=== PATIENT | male | born 1955 | race Caucasian/White ===

== ENCOUNTER → 2019-02-28 10:54 | Outpatient (CLI) | payer BC, SELFPAY ==
[2019-02-28 12:42] LABS: Absolute Lymphocyte Count 1.34 X10^3/uL (0.83-4.51); Absolute Neutrophil Count 3.9 X10^3/uL (2.0-7.7); Basophil# 0.02 X10^3/uL; Basophil% 0.3 % (0-1); Eosinophil# 0.07 X10^3/uL; Eosinophils% 1.2 % (0-5); Hematocrit 44.3 % (40-54); Hemoglobin 14.2 g/dL (13.0-16.5); Lymphocyte # 1.34 X10^3/ul (4.0); Lymphocyte % 22.3 % (19-41); Mean Corp Hgb Conc 32.1 g/dL (32-36); Mean Corpuscular Hgb 28.8 pg (27.0-32.0); Mean Corpuscular Volume 89.9 fL (80-94); Mean Platelet Vol. 11.5 fl (6.2-12.0); Monocyte# 0.66 X10^3/uL; NRBC Flagged by Analyzer 0 % (0-5); Neutrophil % 64.9 % (47-70); Platelet Count 161 K/mm3 (150-450); RBC Distribution Width CV 13.5 % (11.6-14.6); RBC Distribution Width SD 44.1 fl (35.1-43.9); Red Blood Count 4.93 M/mm3 (4.6-6.2)
[2019-02-28 13:27] LABS: ALB/GLOB Ratio 1.1 RATIO (0.9-2.4); AST(SGOT) 26 U/L (15-37); Alanine Aminotransfer ALT/SGPT 37 U/L (16-61); Albumin, Serum 3.8 g/dL (3.2-5.0); Alkaline Phosphatase 71 U/L (45-117); Anion Gap 6 (5-15); BUN 25 mg/dL (7-18); BUN/Creat Ratio 24.3 RATIO (10-20); Calcium,Total 9.2 mg/dL (8.5-10.1); Chloride 108 mmol/L (98-107); Cholesterol 120 mg/dL (200); Creatinine, Serum 1.03 mg/dL (0.70-1.30); EST Glomerular Filtration Rate 77 mL/min (>60); Est Glom Filt Rate - Afr Amer 93 mL/min (>60); Globulin 3.6 g/dL (2.2-4.2); Glucose 94 mg/dL (74-106); High Density Lipoprotein 34 mg/dL; PSA,Total - Annual Screen 0.54 ng/mL (0.00-4.00); Potassium 4.3 mmol/L (3.5-5.1); Protein, Total 7.4 g/dL (6.4-8.2); Sodium Level 141 mmol/L (136-145); Thyroid Stim Hormone (TSH) 4.98 uIU/mL (0.358-3.74); Triglycerides 190 mg/dL; Very Low Density Lipoprotein 38 mg/dL (5-40)
== END ==
PROVIDERS: Family Provider Family Medicine; PCP Family Medicine; Referring Provider Family Medicine; Visit Provider Family Medicine
DX: Z00.00 Encounter for general adult medical examination without abnormal findings (principal); Z12.5 Encounter for screening for malignant neoplasm of prostate
CPT/HCPCS: 36415; 80053; 80061; 84153; 84443; 85025; G0103

== ENCOUNTER → 2019-12-21 05:58 | Outpatient (CLI) | payer BC, SELFPAY ==
[2019-05-29 14:28] VITALS: BMI 24.9
--- NOTE | 2019-12-21 06:08 | RAD_ITS ---
ACR Level 3 findings have been noted. An addendum which confirms receipt of the report will follow. 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 HX OF HERNIAS. DENIES ANY CHEST SYMPTOMS. ADDITIONAL HISTORY: None provided. COMPARISON: None EXAMINATION/TECHNIQUE: XR Chest 2 Views Number of images including paperwork: 2 FINDINGS: LUNGS AND PLEURA: No dense consolidation. Elevated left hemidiaphragm. Blunting of left costophrenic angle may be related to small pleural effusion or pleural scarring. Approximate 8 mm nodular density projects between the right posterior fifth and sixth ribs overlying the inferior aspect of the second anterior rib. CARDIAC SILHOUETTE: Unremarkable. MEDIASTINUM AND PIPPA: Unremarkable. UPPER ABDOMEN: Unremarkable. SKELETON AND SOFT TISSUES: No acute findings. OTHER DEVICES AND HARDWARE: Humeral hardware partially visible. RAD/Chest PA and Lateral IMPRESSION: No definite acute findings. Elevated left hemidiaphragm with left pleural scarring and/or small effusion. Possible right lung nodule. CT chest recommended for further evaluation. at 0626 Reported and signed by: Selma Gomes MD Electronically Signed: Selma Gomes MD at 6:26 EDT Tel , Service support ,
== END ==
PROVIDERS: PCP Family Medicine; Referring Provider Surgery; Visit Provider Surgery
DX: K44.9 Diaphragmatic hernia without obstruction or gangrene (principal); T14.90XA Injury, unspecified, initial encounter; X58.XXXA Exposure to other specified factors, initial encounter; Y93.9 Activity, unspecified; Y92.9 Unspecified place or not applicable; Y99.9 Unspecified external cause status
CPT/HCPCS: 71046

== ENCOUNTER → 2019-12-31 14:42 | Outpatient (CLI) | payer BC, SELFPAY ==
[2019-05-29 14:28] VITALS: BMI 24.9
[2019-12-28 15:05] VITALS: BMI 24.9
--- NOTE | 2019-12-31 14:48 | CT_ITS ---
STUDY: CT CHEST WITHOUT CONTRAST REASON FOR EXAM: Male, 64 years old. PULMONARY NODULE F/U RADIATION DOSAGE (If Supplied By Facility): CTDIvol = ( 12.39 ) mGy, DLP = ( 495.28 ) mGycm TECHNIQUE: Transaxial imaging was performed without the administration of intravenous contrast material. Individualized dose optimization techniques were used for this CT. COMPARISON: None. FINDINGS: There is compressive atelectasis in the left lung base. There is no demonstrated pleural abnormality. Normal heart and pericardium. Normal mediastinum. Normal hilar regions. Normal unenhanced pulmonary arteries. Normal aorta arch and descending thoracic aorta. Old healed fractures of the left ninth, 10th, 11th ribs. 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 There is compressive atelectasis in the left lung base. Electronically Signed: Elif Mills, at 14:38 EDT Tel , Service support ,
== END ==
PROVIDERS: PCP Family Medicine; Referring Provider Family Medicine; Visit Provider Family Medicine
DX: R91.1 Solitary pulmonary nodule (principal)
CPT/HCPCS: 71250

== ENCOUNTER → 2020-03-12 08:03 | Outpatient (CLI) | payer BC, SELFPAY ==
[2020-01-28 07:29] VITALS: BMI 24.9
[2020-03-12 10:07] LABS: Absolute Lymphocyte Count 1.25 X10^3/uL (0.83-4.51); Absolute Neutrophil Count 2.9 X10^3/uL (2.0-7.7); Basophil# 0.02 X10^3/uL; Basophil% 0.4 % (0-1); Eosinophil# 0.05 X10^3/uL; Hematocrit 44.4 % (40-54); Hemoglobin 14.6 g/dL (13.0-16.5); Lymphocyte # 1.25 X10^3/ul (4.0); Lymphocyte % 26.2 % (19-41); Mean Corp Hgb Conc 32.9 g/dL (32-36); Mean Corpuscular Hgb 29.3 pg (27.0-32.0); Mean Corpuscular Volume 89.2 fL (80-94); Monocyte# 0.51 X10^3/uL; Monocyte% 10.7 % (0-10); NRBC Flagged by Analyzer 0 % (0-5); Neutrophil # 2.93 X10^3/uL (2.7-7.7); Neutrophil % 61.3 % (47-70); Platelet Count 164 K/mm3 (150-450); RBC Distribution Width CV 13.2 % (11.6-14.6); RBC Distribution Width SD 42.7 fl (35.1-43.9); Red Blood Count 4.98 M/mm3 (4.6-6.2); White Blood Count 4.8 K/mm3 (4.4-11.0)
[2020-03-12 10:37] LABS: ALB/GLOB Ratio 0.9 RATIO (0.9-2.4); AST(SGOT) 25 U/L (15-37); Alanine Aminotransfer ALT/SGPT 39 U/L (16-61); Albumin, Serum 3.6 g/dL (3.2-5.0); Alkaline Phosphatase 82 U/L (45-117); Anion Gap 6 (5-15); BUN 19 mg/dL (7-18); BUN/Creat Ratio 19.1 RATIO (10-20); Calcium,Total 8.6 mg/dL (8.5-10.1); Chloride 107 mmol/L (98-107); Cholesterol 123 mg/dL (200); Creatinine, Serum 0.99 mg/dL (0.70-1.30); EST Glomerular Filtration Rate 80 mL/min (>60); Est Glom Filt Rate - Afr Amer 97 mL/min (>60); Globulin 3.8 g/dL (2.2-4.2); Glucose 93 mg/dL (74-106); High Density Lipoprotein 37 mg/dL; PSA,Total - Annual Screen 0.67 ng/mL (0.00-4.00); Potassium 4.3 mmol/L (3.5-5.1); Protein, Total 7.4 g/dL (6.4-8.2); Sodium Level 140 mmol/L (136-145); Triglycerides 75 mg/dL; Very Low Density Lipoprotein 15 mg/dL (5-40)
== END ==
PROVIDERS: PCP Family Medicine; Referring Provider Family Medicine; Visit Provider Family Medicine
DX: Z00.00 Encounter for general adult medical examination without abnormal findings (principal); Z12.5 Encounter for screening for malignant neoplasm of prostate
CPT/HCPCS: 36415; 80053; 80061; 84153; 85025; G0103

== ENCOUNTER → 2021-03-05 10:54 | Outpatient (CLI) | payer BC, SELFPAY ==
[2021-03-05 12:26] LABS: Absolute Lymphocyte Count 1.21 X10^3/uL (0.83-4.51); Absolute Neutrophil Count 3.3 X10^3/uL (2.0-7.7); Basophil# 0.02 X10^3/uL; Basophil% 0.4 % (0-1); Eosinophil# 0.06 X10^3/uL; Eosinophils% 1.1 % (0-5); Hemoglobin 13.8 g/dL (13.0-16.5); Lymphocyte # 1.21 X10^3/ul (0.83-4.51); Lymphocyte % 23.2 % (19-41); Mean Corp Hgb Conc 32.1 g/dL (32-36); Mean Corpuscular Hgb 28.8 pg (27.0-32.0); Mean Corpuscular Volume 89.6 fL (80-94); Monocyte# 0.59 X10^3/uL; Monocyte% 11.3 % (0-10); NRBC Flagged by Analyzer 0 % (0-5); Neutrophil # 3.31 X10^3/uL (2.7-7.7); Neutrophil % 63.4 % (47-70); Platelet Count 179 K/mm3 (150-450); RBC Distribution Width CV 13.3 % (11.6-14.6); RBC Distribution Width SD 43.7 fl (35.1-43.9); White Blood Count 5.2 K/mm3 (4.4-11.0)
[2021-03-05 13:06] LABS: ALB/GLOB Ratio 0.9 RATIO (0.9-2.4); AST(SGOT) 26 U/L (15-37); Alanine Aminotransfer ALT/SGPT 50 U/L (16-61); Albumin, Serum 3.5 g/dL (3.2-5.0); Alkaline Phosphatase 80 U/L (45-117); Anion Gap 5 (5-15); BUN 22 mg/dL (7-18); BUN/Creat Ratio 24.6 RATIO (10-20); Calcium,Total 8.7 mg/dL (8.5-10.1); Chloride 107 mmol/L (98-107); Cholesterol 121 mg/dL (200); Creatinine, Serum 0.89 mg/dL (0.70-1.30); EST Glomerular Filtration Rate 90 mL/min (>60); Est Glom Filt Rate - Afr Amer 109 mL/min (>60); Globulin 3.8 g/dL (2.2-4.2); Glucose 93 mg/dL (74-106); High Density Lipoprotein 33 mg/dL; PSA,Total - Annual Screen 0.74 ng/mL (0.00-4.00); Potassium 4.4 mmol/L (3.5-5.1); Protein, Total 7.3 g/dL (6.4-8.2); Sodium Level 140 mmol/L (136-145); Triglycerides 284 mg/dL; Very Low Density Lipoprotein 57 mg/dL (5-40)
== END ==
PROVIDERS: PCP Family Medicine; Referring Provider Family Medicine; Visit Provider Family Medicine
DX: Z00.00 Encounter for general adult medical examination without abnormal findings (principal)
CPT/HCPCS: 36415; 80053; 80061; 84153; 85025; G0103

== ENCOUNTER 2021-05-26 05:50 | Day surgery (SDC) | payer BC, SELFPAY ==
--- NOTE | 2021-04-29 09:01 | EKG12_ITS ---
Test Reason : PRE OP Blood Pressure : / mmHG Vent. Rate : 063 BPM Atrial Rate : 063 BPM P-R Int : 162 ms QRS Dur : 100 ms QT Int : 404 ms P-R-T Axes : 070 071 062 degrees QTc Int : 413 ms Normal sinus rhythm Normal ECG Confirmed by ABDON MOURA, AMAURY ([id number]), editorial writer JOSÉ ORTIZ ([id number]) on 04/30/2021 7:09:17 AM Referred By: Juancarlos Rivers Confirmed By:AMAURY COPPOLA MD
[2021-04-29 10:00] LABS: Hematocrit 43.1 % (40-54); Hemoglobin 13.8 g/dL (13.0-16.5); Mean Corpuscular Hgb 28.9 pg (27.0-32.0); Mean Corpuscular Volume 90.2 fL (80-94); Mean Platelet Vol. 10.8 fl (6.2-12.0); Platelet Count 166 K/mm3 (150-450); RBC Distribution Width CV 13.6 % (11.6-14.6); RBC Distribution Width SD 45.4 fl (35.1-43.9); Red Blood Count 4.78 M/mm3 (4.6-6.2); White Blood Count 5.6 K/mm3 (4.4-11.0)
[2021-04-29 10:34] LABS: Anion Gap 4 (5-15); BUN 26 mg/dL (7-18); BUN/Creat Ratio 25.5 RATIO (10-20); Calcium,Total 8.6 mg/dL (8.5-10.1); Chloride 107 mmol/L (98-107); Creatinine, Serum 1.02 mg/dL (0.70-1.30); EST Glomerular Filtration Rate 77 mL/min (>60); Est Glom Filt Rate - Afr Amer 94 mL/min (>60); Glucose 94 mg/dL (74-106); Potassium 4.1 mmol/L (3.5-5.1); Sodium Level 142 mmol/L (136-145)
[2021-05-26] VITALS (13 sets, daily range): BP systolic 80–114; BP diastolic 43–70; PULSE 55–70; RESP 16–18; TEMP 36.9–37.2; O2SAT 92–100; BMI 25.9
[2021-05-26] MEDS: Lactated Ringers 1,000 ML 15 ML IV ×2 (06:42→08:46)
--- NOTE | 2021-05-26 06:43 | HP.PCM_ITS ---
History and Physical Date of Admission: 05/26/21 Intake Visit Reasons: UPDATE H& P Chief Complaint: update H&P for hernia repair Medical Associate Required: No Is patient in pain?: No Allergies No Known Allergies Allergy (Verified 04/30/21 09:05) Medications NK 04/24/21 [History Confirmed 04/30/21] tamsulosin 0.4 mg capsule 0.4 mg PO QHS #14 cap 04/30/21 [Rx Confirmed 04/30/21] PFSH Medical History Abdominal pain Bilateral inguinal hernia without obstruction or gangrene Diaphragmatic hernia Gastric reflux History of arm fracture History of edema Hx of fracture of left hip Hx of fracture of leg Hx of pleurisy Loss of consciousness Migraine headache Non-smoker Surgical History Trauma Family History Mother Hypertension CVA (cerebral vascular accident) Social History Smoking Status: Never smoker second hand exposure: No alcohol intake: never substance use type: does not use caffeine: No frequency: 5-6 times per week seatbelt use: always HPI HPI HPI: LATRICE BARBA, is a 65 M who presents to the office today for an update history and physical. Patient denies recent hospitalizations or illnesses within the last 3 months. Patient claims he had COVID over 2020, however he never had an official test. He states his symptoms started on 03/17. He noted his symptoms lasted 2 days. he states he has been vaccinated and additionally had the booster. He denies any residual side effects. Patient does note that he had a traumatic fall years ago off of a ladder where he broke ribs and had to have surgery for fractured pelvis, left hip and left arm. 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 There is compressive atelectasis in the left lung base. Patient notes that when he is anxious or stressed his breathing does become labored secondary to a diaphragmatic hernia and phrenic nerve paralysis. he has never followed up with a deputy chief counsel. He does not have to utilize any inhalers. He denies chest pain currently. He denies pain/discomfort in the groin areas. He denies change in bowel habits. He notes the left inguinal hernia continues to increase in size. He states the hernia will reduce on its own. He notes intermittently he will have to manually reduce it. He notes having to get up at least once at night time in order to urinate. He is not currently on any medications. Patient's previous history per Dr. Rivers: LATRICE BARBA, is a 64 M who presents to the office today for repeat surgical consultation regarding shortness of breath and epigastric pain. I previously saw this patient on May 29, 2019. That point he is referred by Dr Evans Zeng for surgical consultation. The patient claimed that 5 years prior he had fallen from a roof onto his left side causing a fracture injury to the left arm ribs pelvis collarbone. That point it was suggested to him that he might have a congenital diaphragmatic hernia. He claims that when he humberto over he will gag and have discomfort in the epigastrium. He claimed that 3 weeks prior to his May appointment he had a flulike illness and had generalized abdominal discomfort. He claims that he had had a colonoscopy done by Dr. Duane Ying December 14, 2007 without acute findings. It had been recommended to the patient that he pursue a follow-up colonoscopy and the p atient declined. As of February 28, 2019 his CBC liver function tests were normal. He is being referred for possible consideration of an upper and lower endoscopy. The patient also has a known history of a left inguinal hernia which had been progressively enlarging according to the patient. At the completion of my review I felt that he had non-recurrent bilateral inguinal hernias without obstruction or gangrene. I could not tell whether he had a diaphragmatic hernia but he had been instructed that he did and that follow-up was indicated and he did not previously pursue it. Is having ongoing problems with epigastric pain which could be related to a diaphragmatic defect or involvement of the bile. He had a past history of chest trauma and pelvic trauma and rib fractures. On my clinical exam there was dullness to percussion of the left thoracic base and diminished breath sounds. I felt that a chest abdomen pelvic CT to further clarify he has abdominal pain complaints was warranted. Apparently his insurance company initially approved it. Because of Covid-19 the patient did not pursue it. At this time his insurance company is denying the imaging. His insurance company requested a chest x-ray. On December 21, 2019 at the [facility] the insurance company requested chest x-ray was obtained. This demonstrated elevation of left hemidiaphragm with blunting of left costophrenic angle possibly related to a small pleural effusion no pleural scarring. An 8 mm nodular density projecting in the right posterior fifth and sixth ribs overlying the inferior aspect of the second anterior rib. A chest CT was recommended by radiology. The patient has been seen by his primary care physician Dr Evans Zeng and a chest CT by report has been requested. LATRICE BARBA, is a 64 M who presents to the office today for ongoing concerns regarding abdominal pain. He has had a chest x-ray and a chest CT scan as noted below since his previous visit. This demonstrates marked elevation of the left hemidiaphragm consistent with phrenic nerve paralysis. It also demonstrates some atelectasis of the left base. Today's appointment is to be discussed his bilateral inguinal hernias. [facility] Imaging Services [address] [place] [address] Chest without Contrast MR#: [id number] Name: LATRICE BARBARep #:[id number] : 1955M 64 From: Eilf Mills MD PCP:Dr. Evans Zeng MD Status:REG CLI Study:Chest without Contrast Date of Exam:12/31/19 Exam#[id number] Ordering Dr: Evans Zeng MD STUDY: CT CHEST WITHOUT CONTRAST REASON FOR EXAM: Male, 64 years old. PULMONARY NODULE F/U RADIATION DOSAGE (If Supplied By Facility): CTDIvol = ( 12.39 ) mGy, DLP = ( 495.28 ) mGycm TECHNIQUE: Transaxial imaging was performed without the administration of intravenous contrast material. Individualized dose optimization techniques were used for this CT. COMPARISON: None. FINDINGS: There is compressive atelectasis in the left lung base. There is no demonstrated pleural abnormality. Normal heart and pericardium. Normal mediastinum. Normal hilar regions. Normal unenhanced pulmonary arteries. Normal aorta arch and descending thoracic aorta. Old healed fractures of the left ninth, 10th, 11th ribs. 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 There is compressive atelectasis in the left lung base. Electronically Signed: Elif Mills, at 14:38 EDT Tel , Service support , ROS General General: Yes fatigue; No weight change, appetite, colon cancer, breast cancer or weakness HEENT HEENT: No difficulty swallowing, eye injury, eye surgery, swollen glands or hoarseness Endo Endocrine: No thyroid disease, diabetes mellitus, thyroid cancer, Hair loss, heat intolerance or cold intolerance Musc Musculoskeletal: No back problems, arthritis, rheumatoid arthritis, gout or joint pain Cardio Cardiovascular: No murmur, pacemaker, heart disease, atrial fibrillation, high blood pressure, heart attack, heart stent, palpitations, shortness of breat with exertion or chest pain Psych Psychiatric: No depression, anxiety or hearing voices Resp Respiratory: No shortness of breath, No sleep apnea, No cough, No COPD, No asthma, No emphysema and No wheezing Gastro Gastrointestinal: Yes abdominal pain, No nausea or vomiting, No diarrhea, No constipation, No blood in stool, No acid reflux, No hemorrhoids, No ulcers, No gallbladder problem and No black,tarry stools Terence Hematologic: No blood thinners, No blood disorders, No bleeding, No anemia and No blood clots Neuro Neurologic: No weakness Exam Const General: cooperative, healthy appearing, comfortable and no acute distress [facility] Head: normal to inspection Eyes General: appearance normal, both eyes and all related structures Neck Neck: normal visual inspection Neck mass: No Resp Effort & Inspection: normal respiratory effort Auscultation: clear to auscultation bilaterally and diminished lung sounds on the left in the lower lung ambriz Cardio Rate: regular rate Rhythm: regular rhythm GI Inspection: normal to inspection Palpation: soft Auscultation: normal bowel sounds Other: Left groin- large non-reducible left inguinal hernia involving bowel Right groin- palpable right inguinal hernia; easily reducible Nicely healed incision of the left lower abdomen extending laterally from previous traumatic hip repair Skin General: no rashes or lesions noted Neuro General: no focal motor deficits and CN's II-XI intact bilaterally Extrem General: normal to inspection Psych Appearance: grossly normal Affect: normal affect COVID (Procedure Consent) Procedure Criteria Procedure Criteria: Yes Elective The surgeon/proceduralist and patient have discussed in detail the risk of exposure to and/or potential harm posed by the COVID-19 virus with having a surgery/procedure at this time versus the risk of delaying the surgery/procedure. It is not possible to know either the risk of delaying the surgery or procedure or chance of getting an infection with perfect accuracy, but a joint decision was made between the patient and the surgeon/proceduralist to proceed at this time with the scheduled surgery/procedure as indicated on the consent form. Assessment and Plan Assessment and Plan (1) Bilateral inguinal hernia without obstruction or gangrene: Status: Acute Qualifiers: Recurrence: non-recurrent Qualified Code(s): K40.20 - Bilateral inguinal hernia, without obstruction or gangrene, not specified as recurrent Plan - Corinna GUNDERSON PAYeseniaC: Dr. Rivers will plan to perform laparoscopic bilateral inguinal hernia repair with mesh. Procedure details, risks and benefits have been reviewed with the patient. Patient is aware that this will be an extensive repair secondary to the amount of bowel that is involved. Patient has requested Dr. Tipton for anesthesia. It has been discussed with the patient that we are recommending 2 weeks off of work. Post-operative instructions have been reviewed and provided as well. Patient has had the opportunity to ask and have questions answered. Flomax will be sent to the patient's pharmacy. He is asked to start this medication right away tonight. Patient verbally understands and agrees with the plan. Plan Details Other Medications: New: tamsulosin (Flomax) 0.4 mg PO QHS 14 caps 0RF I have re-examined the patient. There are no clinical changes since date of exam.
--- NOTE | 2021-05-26 06:45 | EX.PCM.DISCH ---
Discharge Instructions Procedure General Surgery Diet Discharge Diet: Light diet - advance as tolerated (if you have questions about your diet instructions, please talk to you doctor.) Activity Discharge Activity: May Not Drive (for 3-5 days or while taking narcotic pain medicine.) May shower in (days): 1 Lifting Restrictions: 10 pounds Dressing / Incision Call your doctor if your incision/area has: Continuous Slow Oozing, Sudden Increased Bleeding, Increased Pain/ Swelling, Increased Redness and Foul Smelling Discharge Call your doctor if you observe: Fever of 101 or Higher Suture Line Care: Avoid Pulling/Pushing and Avoid Pinching/Bending Additional Dressing/Incision Instructions:: Change or remove dressing in 4 days. Leave steri-strips in place for 1 week. Follow Up Care Please Follow Up With: Juancarlos Rivers MD When: Call [phone] to make an appointment to be seen in about 10 days. Test Results: Test results from this visit will be discussed in further detail at your follow-up appointment, if applicable. Discharge Plan Admission Attending Provider: Juancarlos Rivers Primary Care Provider: Evans Zeng Discharge Orders/Prescriptions Prescriptions: No Action tamsulosin [Flomax] 0.4 mg capsule 0.4 mg PO QHS Qty: 14 RF: 0 NK RF: 0
[2021-05-26] MEDS: Cefazolin 2 GM in 0.9% Normal Saline 100 ML IV (07:45)
[2021-05-26] MEDS: Bupivacaine Mpf 0.5% 30 ML VIAL (08:15)
[2021-05-26] MEDS: Lidocaine 1% (20 ml mdv) 20 ML Vial (08:15)
--- NOTE | 2021-05-26 09:22 | PCM.OPRPT ---
Problems Associated Problem List Diagnoses (1) Bilateral inguinal hernia without obstruction or gangrene: Report of Operation Date of Procedure: 05/26/21 Pre-Operative Diagnosis: Bilateral inguinal hernias Post-Operative Diagnosis: Large indirect left inguinal hernia, direct and indirect right inguinal hernias Surgery/Procedure Performed:: Laparoscopic bilateral inguinal herniorrhaphy with bilateral extra-large Bard 3D max mesh Extra-large right lot number [id number], reference [id number], expiry date 11/22/2025 Extra-large left lot number [id number], reference [id number], expiry date 10/22/2025 Secure strap Lot number [id number], expiry date July 2022 Description of Surgical Findings:: Timeout informed consent was obtained. 65-year-old gentleman was taken to the operating placed supine on the table underwent general endotracheal intubation anesthesia. Ancef 2 g were given intravenously. The abdomen was sterilely prepped and draped. 20 cc of 1% lidocaine mixed with 30 cc of 0.5% Marcaine was used as a local anesthetic. Skin sites were preanesthetized. A vertical infraumbilical incision was created sharp dissection carried down through the subtenons tissue holding sutures of 0 Vicryl placed the fascia was incised and direct access was gained to the peritoneum Asencio catheter was inserted. The abdomen was insufflated with CO2 to a pressure of 10 mmHg pressure. 10 mm laparoscope inserted. Under direct visualization 5 mm ports were placed in the right and left lower quadrant. Ilioinguinal nerve blocks were performed bilaterally under laparoscopic control. There was some adhesions of the pericolonic tissue in the left lower quadrant to the anterior abdominal wall and these were sharply transected to allow access to the peritoneum which was then inside. This was reflected. Using external pressure portion of the sigmoid colon was reduced. The sac was then further reduced with both sharp and blunt dissection as a very large left inguinal hernia sac and contents completely reduced. Dissection was formed medially and the retropubic pubic area. Adhesions were encountered in this location and Hem-o-nick clips were used for hemostasis as the dissection was slow and tedious. I then krystian attention to the right groin incised the peritoneum superior lateral to the internal ring reflected the peritoneum on the right and detected both a indirect and direct inguinal hernia on the right. Upon dissecting the space was able to communicate with the dissection from the left. The urinary bladder was carefully protected as it was dissected free. The retropubic area nicely exposed. An extra-large Bard 3D max mesh was placed on the left first it was secured in place superior and laterally and medially with secure strap. I then placed an extra-large mesh on the right it overlapped the left at the midline. It nicely covered all defects and it also was secured superiorly medially and laterally with secure strap. Excellent positioning of both pieces of mesh was achieved with excellent coverage of all hernial defects. The peritoneum was then reapproximated to itself using secure strap and hemolock clips. Complete obliteration to the mesh was achieved. The abdomen was now deflated of the CO2. The fascia at the infraumbilical area was closed with a running 0 Vicryl. Skin edges approximated opted for Monocryl subdermal stitches. Steri-Strips Telfa OpSite dressings applied. Sponge and instrument and needle counts were reported to the surgeon to be correct. Specimens none. Drains none. Blood loss minimal. Juancarlos Rivers M.D., F.A.C.S. Surgeon: Juancarlos Rivers Type of Anesthesia: General and Local Anesthesiologist: Earl Escobar
[2021-05-26] MEDS: Ibuprofen 600 MG Tablet PO (12:02)
== END 2021-05-26 23:59 | disposition home or self-care (01) ==
LOC: SDC 05:50 → AC 05:51
PROVIDERS: PCP Family Medicine; Referring Provider Surgery; Visit Provider Surgery
PROC: (CPT 49650; principal; 2021-05-26 07:10)
DX: K40.20 Bilateral inguinal hernia, without obstruction or gangrene, not specified as recurrent (principal); K21.9 Gastro-esophageal reflux disease without esophagitis; K44.9 Diaphragmatic hernia without obstruction or gangrene; Z86.16 Personal history of COVID-19
CPT/HCPCS: 49650; 36415; 80048; 85027; 93005; J7120; C1781; J2405

== ENCOUNTER → 2022-03-10 | Outpatient (CLI) | payer BC, SELFPAY ==
[2022-03-10 09:54] LABS: Absolute Lymphocyte Count 1.18 X10^3/uL (0.83-4.51); Basophil# 0.02 X10^3/uL; Basophil% 0.4 % (0-1); Eosinophil# 0.12 X10^3/uL; Eosinophils% 2.4 % (0-5); Hematocrit 45.1 % (40-54); Hemoglobin 14.3 g/dL (13.0-16.5); Lymphocyte # 1.18 X10^3/ul (0.83-4.51); Lymphocyte % 23.9 % (19-41); Mean Corp Hgb Conc 31.7 g/dL (32-36); Mean Corpuscular Hgb 28.7 pg (27.0-32.0); Mean Corpuscular Volume 90.6 fL (80-94); Mean Platelet Vol. 11.1 fl (6.2-12.0); Monocyte# 0.56 X10^3/uL; Monocyte% 11.3 % (0-10); NRBC Flagged by Analyzer 0 % (0-5); Neutrophil # 3.04 X10^3/uL (2.7-7.7); Neutrophil % 61.6 % (47-70); Platelet Count 163 K/mm3 (150-450); RBC Distribution Width CV 13.4 % (11.6-14.6); RBC Distribution Width SD 44.6 fl (35.1-43.9); Red Blood Count 4.98 M/mm3 (4.6-6.2); White Blood Count 4.9 K/mm3 (4.4-11.0)
[2022-03-10 10:18] LABS: ALB/GLOB Ratio 1.2 RATIO (0.9-2.4); AST(SGOT) 27 U/L (15-37); Alanine Aminotransfer ALT/SGPT 47 U/L (16-61); Albumin, Serum 3.8 g/dL (3.2-5.0); Alkaline Phosphatase 75 U/L (45-117); Anion Gap 5 (5-15); BUN 20 mg/dL (7-18); BUN/Creat Ratio 20.1 RATIO (10-20); Calcium,Total 8.9 mg/dL (8.5-10.1); Chloride 107 mmol/L (98-107); Cholesterol 139 mg/dL (200); Creatinine, Serum 0.99 mg/dL (0.70-1.30); EST Glomerular Filtration Rate 79 mL/min (>60); Est Glom Filt Rate - Afr Amer 96 mL/min (>60); Globulin 3.2 g/dL (2.2-4.2); Glucose 93 mg/dL (74-106); High Density Lipoprotein 45 mg/dL; PSA,Total - Annual Screen 0.77 ng/mL (0.00-4.00); Potassium 4.4 mmol/L (3.5-5.1); Sodium Level 141 mmol/L (136-145); Triglycerides 50 mg/dL; Very Low Density Lipoprotein 10 mg/dL (5-40)
== END | disposition home or self-care (01) ==
LOC: MFPLAB 08:09
PROVIDERS: PCP Family Medicine; Referring Provider Family Medicine; Visit Provider Family Medicine
DX: E78.5 Hyperlipidemia, unspecified (principal); Z12.5 Encounter for screening for malignant neoplasm of prostate
CPT/HCPCS: 36415; 80053; 80061; 84153; 84432; 84439; 84443; 85025; 86376; 86800; G0103

== ENCOUNTER → 2023-04-14 | Outpatient (CLI) | payer BC, SELFPAY ==
[2023-04-14 10:31] LABS: Absolute Lymphocyte Count 1.13 X10^3/uL (0.83-4.51); Absolute Neutrophil Count 3.2 X10^3/uL (2.0-7.7); Basophil# 0.01 X10^3/uL; Basophil% 0.2 % (0-1); Eosinophil# 0.08 X10^3/uL; Eosinophils% 1.6 % (0-5); Hematocrit 44.8 % (40-54); Hemoglobin 14.8 g/dL (13.0-16.5); Lymphocyte # 1.13 X10^3/ul (0.83-4.51); Lymphocyte % 22.9 % (19-41); Mean Corpuscular Hgb 29.8 pg (27.0-32.0); Mean Corpuscular Volume 90.1 fL (80-94); Mean Platelet Vol. 11.6 fl (6.2-12.0); Monocyte# 0.52 X10^3/uL; Monocyte% 10.5 % (0-10); NRBC Flagged by Analyzer 0 % (0-5); Neutrophil # 3.18 X10^3/uL (2.7-7.7); Neutrophil % 64.6 % (47-70); Platelet Count 165 K/mm3 (150-450); RBC Distribution Width CV 13.2 % (11.6-14.6); RBC Distribution Width SD 43.7 fl (35.1-43.9); Red Blood Count 4.97 M/mm3 (4.6-6.2); White Blood Count 4.9 K/mm3 (4.4-11.0)
[2023-04-14 10:51] LABS: AST(SGOT) 24 U/L (15-37); Alanine Aminotransfer ALT/SGPT 39 U/L (16-61); Albumin, Serum 3.7 g/dL (3.2-5.0); Alkaline Phosphatase 75 U/L (45-117); Anion Gap 3 (5-15); BUN 16 mg/dL (7-18); BUN/Creat Ratio 15.7 RATIO (10-20); Calcium,Total 9.2 mg/dL (8.5-10.1); Chloride 107 mmol/L (98-107); Cholesterol 136 mg/dL (200); Creatinine, Serum 1.02 mg/dL (0.70-1.30); EST Glomerular Filtration Rate 77 mL/min (>60); Est Glom Filt Rate - Afr Amer 93 mL/min (>60); Globulin 3.7 g/dL (2.2-4.2); Glucose 100 mg/dL (74-106); High Density Lipoprotein 41 mg/dL; PSA,Total - Annual Screen 0.87 ng/mL (0.00-4.00); Potassium 4.3 mmol/L (3.5-5.1); Protein, Total 7.4 g/dL (6.4-8.2); Sodium Level 138 mmol/L (136-145); T4 Free Direct 1.02 ng/dL (0.76-1.46); Thyroid Stim Hormone (TSH) 5.95 uIU/mL (0.358-3.74); Triglycerides 78 mg/dL; Very Low Density Lipoprotein 16 mg/dL (5-40)
== END | disposition home or self-care (01) ==
LOC: MTLAB 07:06
PROVIDERS: PCP Family Medicine; Referring Provider Family Medicine; Visit Provider Family Medicine
DX: Z12.5 Encounter for screening for malignant neoplasm of prostate (principal); E06.3 Autoimmune thyroiditis; E78.5 Hyperlipidemia, unspecified
CPT/HCPCS: 36415; 80053; 80061; 84153; 84439; 84443; 85025; G0103

== ENCOUNTER → 2024-05-17 | Outpatient (CLI) | payer BC, SELFPAY ==
[2024-05-17 10:20] LABS: Absolute Lymphocyte Count 1.04 X10^3/uL (0.83-4.51); Absolute Neutrophil Count 2.9 X10^3/uL (2.0-7.7); Basophil# 0.02 X10^3/uL; Basophil% 0.4 % (0-1); Eosinophil# 0.07 X10^3/uL; Eosinophils% 1.5 % (0-5); Hematocrit 45.8 % (40-54); Hemoglobin 14.4 g/dL (13.0-16.5); Lymphocyte # 1.04 X10^3/ul (0.83-4.51); Mean Corp Hgb Conc 31.4 g/dL (32-36); Mean Corpuscular Hgb 28.2 pg (27.0-32.0); Mean Corpuscular Volume 89.6 fL (80-94); Mean Platelet Vol. 11.1 fl (6.2-12.0); Monocyte# 0.47 X10^3/uL; Monocyte% 10.4 % (0-10); NRBC Flagged by Analyzer 0 % (0-5); Neutrophil # 2.91 X10^3/uL (2.7-7.7); Neutrophil % 64.5 % (47-70); Platelet Count 170 K/mm3 (150-450); RBC Distribution Width CV 13.2 % (11.6-14.6); RBC Distribution Width SD 43.2 fl (35.1-43.9); Red Blood Count 5.11 M/mm3 (4.6-6.2); White Blood Count 4.5 K/mm3 (4.4-11.0)
[2024-05-17 10:47] LABS: AST(SGOT) 28 U/L (15-37); Alanine Aminotransfer ALT/SGPT 37 U/L (16-61); Albumin, Serum 3.8 g/dL (3.2-5.0); Alkaline Phosphatase 80 U/L (45-117); Anion Gap 3 (5-15); BUN 21 mg/dL (7-18); BUN/Creat Ratio 20.8 RATIO (10-20); Calcium,Total 8.7 mg/dL (8.5-10.1); Chloride 108 mmol/L (98-107); Cholesterol 132 mg/dL (200); Creatinine, Serum 1.01 mg/dL (0.70-1.30); EST Glomerular Filtration Rate 78 mL/min (>60); Est Glom Filt Rate - Afr Amer 94 mL/min (>60); Globulin 3.8 g/dL (2.2-4.2); Glucose 105 mg/dL (74-106); High Density Lipoprotein 45 mg/dL; PSA,Total - Annual Screen 1.16 ng/mL (0.00-4.00); Potassium 4.3 mmol/L (3.5-5.1); Protein, Total 7.6 g/dL (6.4-8.2); Sodium Level 141 mmol/L (136-145); T4 Free Direct 1.05 ng/dL (0.76-1.46); Triglycerides 46 mg/dL; Very Low Density Lipoprotein 9 mg/dL (5-40)
== END | disposition home or self-care (01) ==
LOC: MTLAB 07:04
PROVIDERS: PCP Family Medicine; Referring Provider Family Medicine; Visit Provider Family Medicine
DX: E78.5 Hyperlipidemia, unspecified (principal); E06.3 Autoimmune thyroiditis; Z12.5 Encounter for screening for malignant neoplasm of prostate
CPT/HCPCS: 36415; 80053; 80061; 84153; 84439; 84443; 85025; G0103

== ENCOUNTER → 2024-06-05 | Outpatient (CLI) | payer BC, SELFPAY | END | disposition home or self-care (01) | LOC: MFPLAB 16:15 | PROVIDERS: PCP Family Medicine; Referring Provider Family Medicine; Visit Provider Family Medicine | DX: R73.09 Other abnormal glucose (principal) | CPT/HCPCS: 36415; 83036 ==

== ENCOUNTER → 2024-12-04 | Outpatient (CLI) | payer BC, SELFPAY ==
--- OUTSIDE RECORDS SUMMARY | 2024-12-04 07:20 | XMS RPT_ITS | CCD ---
Author Organization [facility] Care Team Providers Care Clinical Education Specialist Name Role Phone Evans Zeng Primary Care Unavailable Evans Zeng Referring Unavailable Evans Zeng Attending Unavailable Evans Zeng Referring Unavailable Evans Zeng Attending Unavailable Evans Zeng Primary Care Unavailable Azucena MOURA, Dr. Evans Poole Primary Care Provider Dr. Evans Zeng MD Attending Provider Dr. Evans Zeng MD Referring Provider [phone] Medications Current Medications Medication Drug Class(es) Dates Sig (Normalized) Sig (Original) tamsulosin hydrochloride 0.4 mg oral capsule (6 sources) alpha-Adrenergic Venkat Start: 04-30-2021 End: 05-04-2021 take 1 capsule by mouth at bedtime Tamsulosin (Flomax) 0.4 mg capsule Active 0.4 mg PO AT BEDTIME May 04, 2021 4:45pm Problems Problem Classification Problem Date Documented Da te Episodic/Chronic Abdominal hernia (6 sources) Bilateral inguinal hernia; Translations: [Bilateral inguinal hernia, without obstruction or gangrene, not specified as recurrent] 06-04-2021 Episodic Comment on above: PARALYZED Abdominal pain (3 sources) Abdominal pain; Translations: [Unspecified abdominal pain] 05-29-2019 Episodic Diabetes mellitus without complication (1 source) Other abnormal glucose; Translations: [Other abnormal glucose] Onset: 06-15-2024 Episodic Disorders of lipid metabolism (1 source) Hyperlipidemia, unspecified; Translations: [Hyperlipidemia, unspecified] Onset: 05-29-2024 Chronic Other injuries and conditions due to external causes (3 sources) Traumatic injury; Translations: [Injury, unspecified, initial encounter] 04-24-2021 Episodic Comment on above: 2013 FELL 30 FT AND CRUSHED PELVIS,RIBS,LEFT ARM,LEFT HIP Results Test Name Value Interpretation Reference Range Facility Hemoglobin A1con 06-05-2024 HbA1c (Bld) [Mass fraction] 6.0 % Normal <=5.6 [facility] Comment on above: Order Comment: Order Date: 05/18/24 Order Info: 4548-4 - A1C Performed By: #### L 501.9985 #### [facility] [address] [place], [place], [id number] Hemoglobin A1c percentageOrd ered By: Evans Zeng on 06-05-2024 HbA1c (Bld) [Mass fraction] 6.0 % >5.7 [facility] Absolute neutrophil countOrd ered By: Evans Zeng on 05-17-2024 Neutrophils (Bld) [#/Vol] 2.9 10*3/uL 2.0-7.7 [facility] Albumin to globulin ratioOrd ered By: Evans Zeng on 05-17-2024 Albumin/Globulin [Mass ratio] 1.0 {ratio} 0.9-2.4 [facility] Basophil percentageOrdered B y: Evans Zeng on 05-17-2024 Basophils/100 WBC (Bld) 0.4 % 0-1 [facility] Bilirubin, totalOrdered By: Evans Zeng on 05-17-2024 Bilirubin [Mass/Vol] 0.50 mg/dL 0.20-1.00 [facility] Comment on above: For patients on eltr ombopag therapy, use of Dimension [place] TBIL is not recommended. Blood urea nitrogen (BUN)/cr eatinine ratioOrdered By: Evans Zneg on 05-17-2024 Urea nitrogen/Creatinine [Mass ratio] 20.8 mg/mg High 10-20 [facility] CBC W/Diff, Automatedon 04-29 Absolute Lymph 1.04 X10 3/uL Normal 0.83-4.51 [facility] Comment on above: Order Comment: Order Date: 05/16/24 Order Info: 0184-1 - CBCD Performed By: #### L 506.0400, L501.9910, L500.4100, L100.0100, L500.4050, L501.9520 #### [facility] [address] [place], [address] Absolute Neut 2.9 X10 3/uL Normal 2.0-7.7 [facility] Comment on above: Order Comment: Order Date: 05/16/24 Order Info: 0184-1 - CBCD Performed By: #### L 506.0400, L501.9910, L500.4100, L100.0100, L500.4050, L501.9520 #### [facility] [address] [place], [address] Basophils/100 WBC (Bld) 0.4 % Normal 0-1 [facility] Comment on above: Order Comment: Order Date: 05/16/24 Order Info: 0184-1 - CBCD Performed By: #### L 506.0400, L501.9910, L500.4100, L100.0100, L500.4050, L501.9520 #### [facility] [address] [place], [address] Eosinophils/100 WBC (Bld) 1.5 % Normal 0-5 [facility] Comment on above: Order Comment: Order Date: 05/16/24 Order Info: 0184-1 - CBCD Performed By: #### L 506.0400, L501.9910, L500.4100, L100.0100, L500.4050, L501.9520 #### [facility] [address] [place], [address] Erythrocyte distribution width (RBC) [Ratio] 13.2 % Normal 11.6-14.6 [facility] Comment on above: Order Comment: Order Date: 05/16/24 Order Info: 0184-1 - CBCD Performed By: #### L 506.0400, L501.9910, L500.4100, L100.0100, L500.4050, L501.9520 #### [facility] [address] [place], [address] Hematocrit (Bld) [Volume fraction] 45.8 % Normal 40-54 [facility] Comment on above: Order Comment: Order Date: 05/16/24 Order Info: 0184-1 - CBCD Performed By: #### L 506.0400, L501.9910, L500.4100, L100.0100, L500.4050, L501.9520 #### [facility] [address] [place], [address] Hemoglobin (Bld) [Mass/Vol] 14.4 g/dL Normal 13.0-16.5 [facility] Comment on above: Order Comment: Order Date: 05/16/24 Order Info: 0184-1 - CBCD Performed By: #### L 506.0400, L501.9910, L500.4100, L100.0100, L500.4050, L501.9520 #### [facility] [address] [place], [address] IG% 0.200 Normal 0.0-0.9 [facility] Comment on above: Order Comment: Order Date: 05/16/24 Order Info: 0184-1 - CBCD Result Comment: IG% - Immature Granulocytes (promyelocytes, myelocytes and metamyelocytes) > 1% indicates that a LEFT SHIFT is Present. Performed By: #### L 506.0400, L501.9910, L500.4100, L100.0100, L500.4050, L501.9520 #### [facility] [address] [place], [address] Lymphocytes/100 WBC (Bld) 23.0 % Normal 19-41 [facility] Comment on above: Order Comment: Order Date: 05/16/24 Order Info: 0184-1 - CBCD Performed By: #### L 506.0400, L501.9910, L500.4100, L100.0100, L500.4050, L501.9520 #### [facility] [address] [place], [address] MCH (RBC) [Entitic mass] 28.2 pg Normal 27.0-32.0 [facility] Comment on above: Order Comment: Order Date: 05/16/24 Order Info: 0184-1 - CBCD Performed By: #### L 506.0400, L501.9910, L500.4100, L100.0100, L500.4050, L501.9520 #### [facility] [address] [place], [address] MCHC (RBC) [Mass/Vol] 31.4 g/dL Low 32-36 [facility] Comment on above: Order Comment: Order Date: 05/16/24 Order Info: 0184-1 - CBCD Performed By: #### L 506.0400, L501.9910, L500.4100, L100.0100, L500.4050, L501.9520 #### [facility] [address] [place], [address] MCV (RBC) [Entitic vol] 89.6 fL Normal 80-94 [facility] Comment on above: Order Comment: Order Date: 05/16/24 Order Info: 0184-1 - CBCD Performed By: #### L 506.0400, L501.9910, L500.4100, L100.0100, L500.4050, L501.9520 #### [facility] [address] [place], [address] Monocytes/100 WBC (Bld) 10.4 % High 0-10 [facility] Comment on above: Order Comment: Order Date: 05/16/24 Order Info: 0184-1 - CBCD Performed By: #### L 506.0400, L501.9910, L500.4100, L100.0100, L500.4050, L501.9520 #### [facility] [address] [place], [address] Neutrophils/100 WBC (Bld) 64.5 % Normal 47-70 [facility] Comment on above: Order Comment: Order Date: 05/16/24 Order Info: 0184-1 - CBCD Performed By: #### L 506.0400, L501.9910, L500.4100, L100.0100, L500.4050, L501.9520 #### [facility] [address] [place], [address] Nucleated RBC (Bld) [#/Vol] 0 10*3/uL Normal 0-5 [facility] Comment on above: Order Comment: Order Date: 05/16/24 Order Info: 0184-1 - CBCD Performed By: #### L 506.0400, L501.9910, L500.4100, L100.0100, L500.4050, L501.9520 #### [facility] [address] [place], [address] Platelet mean volume (Bld) [Entitic vol] 11.1 fL Normal 6.2-12.0 [facility] Comment on above: Order Comment: Order Date: 05/16/24 Order Info: 0184-1 - CBCD Performed By: #### L 506.0400, L501.9910, L500.4100, L100.0100, L500.4050, L501.9520 #### [facility] [address] [place], [address] Platelets (Bld) [#/Vol] 170 10*3/uL Normal 150-450 [facility] Comment on above: Order Comment: Order Date: 05/16/24 Order Info: 0184-1 - CBCD Performed By: #### L 506.0400, L501.9910, L500.4100, L100.0100, L500.4050, L501.9520 #### [facility] [address] [place], [address] RBC (Bld) [#/Vol] 5.11 10*6/uL Normal 4.6-6.2 [facility] Comment on above: Order Comment: Order Date: 05/16/24 Order Info: 0184-1 - CBCD Performed By: #### L 506.0400, L501.9910, L500.4100, L100.0100, L500.4050, L501.9520 #### [facility] [address] [place], [address] RDW SD 43.2 fl Normal 35.1-43.9 [facility] Comment on above: Order Comment: Order Date: 05/16/24 Order Info: 0184-1 - CBCD Performed By: #### L 506.0400, L501.9910, L500.4100, L100.0100, L500.4050, L501.9520 #### [facility] [address] [place], [address] WBC (Bld) [#/Vol] 4.5 10*3/uL Normal 4.4-11.0 [facility] Comment on above: Order Comment: Order Date: 05/16/24 Order Info: 0184-1 - CBCD Performed By: #### L 506.0400, L501.9910, L500.4100, L100.0100, L500.4050, L501.9520 #### [facility] [address] [facility] [place], [address] Carbon dioxide measurementOr dered By: Evans Zeng on 05-17-2024 CO2 [Moles/Vol] 30.0 mmol/L 21.0-32.0 [facility] Chloride measurementOrdered By: Evans Zeng on 05-17-2024 Chloride [Moles/Vol] 108 mmol/L High 98-107 [facility] Comprehensive Metabolic Prof ilon 05-17-2024 Albumin [Mass/Vol] 3.8 g/dL Normal 3.2-5.0 [facility] Comment on above: Order Comment: Order Date: 05/16/24 Order Info: 785- - CMP Order Info: - LIPID Order Info: 3015-05 - TSH Order Info: 2856-03 - PSA Order Info: 7 - T4F Performed By: #### L 506.0400, L501.9910, L500.4100, L100.0100, L500.4050, L501.9520 #### [facility] [address] [place], [address] Albumin/Globulin [Mass ratio] 1.0 {ratio} Normal 0.9-2.4 [facility] Comment on above: Order Comment: Order Date: 05/16/24 Order Info: 785- - CMP Order Info: - LIPID Order Info: 3015-05 - TSH Order Info: 2856-03 - PSA Order Info: 7 - T4F Performed By: #### L 506.0400, L501.9910, L500.4100, L100.0100, L500.4050, L501.9520 #### [facility] [address] [place], [address] ALK P 80 U/L Normal 45-117 [facility] Comment on above: Order Comment: Order Date: 05/16/24 Order Info: 785-03 - CMP Order Info: - LIPID Order Info: 3015-05 - TSH Order Info: 2856-03 - PSA Order Info: 7 - T4F Performed By: #### L 506.0400, L501.9910, L500.4100, L100.0100, L500.4050, L501.9520 #### [facility] [address] [place], [address] ALT [Catalytic activity/Vol] 37 U/L Normal 16-61 [facility] Comment on above: Order Comment: Order Date: 05/16/24 Order Info: 785-03 - CMP Order Info: - LIPID Order Info: 3015-05 - TSH Order Info: 2856-03 - PSA Order Info: 3024-7 - T4F Performed By: #### L 506.0400, L501.9910, L500.4100, L100.0100, L500.4050, L501.9520 #### [facility] [address] [place], [address] AST [Catalytic activity/Vol] 28 U/L Normal 15-37 [facility] Comment on above: Order Comment: Order Date: 05/16/24 Order Info: 86-1 - CMP Order Info: 82961-0 - LIPID Order Info: 3 - TSH Order Info: 2856-03 - PSA Order Info: 7 - T4F Performed By: #### L 506.0400, L501.9910, L500.4100, L100.0100, L500.4050, L501.9520 #### [facility] [address] [place], [address] Bilirubin [Mass/Vol] 0.50 mg/dL Normal 0.20-1.00 [facility] Comment on above: Order Comment: Order Date: 05/16/24 Order Info: 785- - CMP Order Info: - LIPID Order Info: 3 - TSH Order Info: 2856-03 - PSA Order Info: 3023-7 - T4F Result Comment: For patients on eltrombopag therapy, use of Dimension [place] TBIL is not recommended. Performed By: #### L 506.0400, L501.9910, L500.4100, L100.0100, L500.4050, L501.9520 #### [facility] [address] [place], [address] BUN/CRE 20.8 RATIO High 10-20 [facility] Comment on above: Order Comment: Order Date: 05/16/24 Order Info: 785-1 - CMP Order Info: [id number] - LIPID Order Info: 3016-3 - TSH Order Info: 2856-03 - PSA Order Info: 3024-7 - T4F Performed By: #### L 506.0400, L501.9910, L500.4100, L100.0100, L500.4050, L501.9520 #### [facility] [address] [place], [address] CA,Total 8.7 mg/dL Normal 8.5-10.1 [facility] Comment on above: Order Comment: Order Date: 05/16/24 Order Info: 86-1 - CMP Order Info: 91117-2 - LIPID Order Info: 3015-3 - TSH Order Info: 2856-03 - PSA Order Info: 3024-7 - T4F Performed By: #### L 506.0400, L501.9910, L500.4100, L100.0100, L500.4050, L501.9520 #### [facility] [address] [place], [address] Chloride [Moles/Vol] 108 mmol/L High 98-107 [facility] Comment on above: Order Comment: Order Date: 05/16/24 Order Info: 785- - CMP Order Info: 22765-5 - LIPID Order Info: 3 - TSH Order Info: 2856-03 - PSA Order Info: 3024-7 - T4F Performed By: #### L 506.0400, L501.9910, L500.4100, L100.0100, L500.4050, L501.9520 #### [facility] [address] [place], [address] CO2 [Moles/Vol] 30.0 mmol/L Normal 21.0-32.0 [facility] Comment on above: Order Comment: Order Date: 05/16/24 Order Info: 86-1 - CMP Order Info: 33277-7 - LIPID Order Info: 3013 - TSH Order Info: 2851 - PSA Order Info: 3024-7 - T4F Performed By: #### L 506.0400, L501.9910, L500.4100, L100.0100, L500.4050, L501.9520 #### [facility] [address] [place], [address] Creatinine [Mass/Vol] 1.01 mg/dL Normal 0.70-1.30 [facility] Comment on above: Order Comment: Order Date: 05/16/24 Order Info: 07- - CMP Order Info: - LIPID Order Info: 3015-05 - TSH Order Info: 2856-03 - PSA Order Info: 3023-09 - T4F Result Comment: The validity of the calculated GFR GFRAA in patients over 70 years has not been determined. Clinical correlation is essential. Performed By: #### L 506.0400, L501.9910, L500.4100, L100.0100, L500.4050, L501.9520 #### [facility] [address] [place], [address] EST GFR - AA 94 mL/min Normal >60 [facility] Comment on above: Order Comment: Order Date: 05/16/24 Order Info: 785-03 - CMP Order Info: - LIPID Order Info: 3015-05 - TSH Order Info: 2856-03 - PSA Order Info: 3023-09 - T4F Result Comment: Afri can [place] GFR Calc Performed By: #### L 506.0400, L501.9910, L500.4100, L100.0100, L500.4050, L501.9520 #### [facility] [address] [place], [address] GAP 3 Low 5-15 [facility] Comment on above: Order Comment: Order Date: 05/16/24 Order Info: 785-03 - CMP Order Info: - LIPID Order Info: 3015-05 - TSH Order Info: 2856-03 - PSA Order Info: 3023-09 - T4F Performed By: #### L 506.0400, L501.9910, L500.4100, L100.0100, L500.4050, L501.9520 #### [facility] [address] [place], [place], [address] GFR/1.73 sq M.predicted among non-blacks MDRD (S/P/Bld) [Vol rate/Area] 78 mL/min/{1.73_m2} Normal >60 [facility] Comment on above: Order Comment: Order Date: 05/16/24 Order Info: 785- - CMP Order Info: [id number] - LIPID Order Info: 3015-05 - TSH Order Info: 2856-03 - PSA Order Info: 7 - T4F Result Comment: Non- GFR Calc Performed By: #### L 506.0400, L501.9910, L500.4100, L100.0100, L500.4050, L501.9520 #### [facility] [address] [place], [address] Globulin (S) [Mass/Vol] 3.8 g/dL Normal 2.2-4.2 [facility] Comment on above: Order Comment: Order Date: 05/16/24 Order Info: 785-03 - CMP Order Info: - LIPID Order Info: 3015-05 - TSH Order Info: 2856-03 - PSA Order Info: 3023-09 - T4F Performed By: #### L 506.0400, L501.9910, L500.4100, L100.0100, L500.4050, L501.9520 #### [facility] [address] [place], [address] Glucose [Mass/Vol] 105 mg/dL Normal 74-106 [facility] Comment on above: Order Comment: Order Date: 05/16/24 Order Info: 785- - CMP Order Info: - LIPID Order Info: 3015-05 - TSH Order Info: 2856-03 - PSA Order Info: 7 - T4F Result Comment: Fast ing Glucose result from 100 to 125 mg/dL suggests IMPAIRED HOMEOSTASIS per A.D.A. criteria. Performed By: #### L 506.0400, L501.9910, L500.4100, L100.0100, L500.4050, L501.9520 #### [facility] [address] [place], [address] Potassium [Moles/Vol] 4.3 mmol/L Normal 3.5-5.1 [facility] Comment on above: Order Comment: Order Date: 05/16/24 Order Info: 785- - CMP Order Info: - LIPID Order Info: 3015-3 - TSH Order Info: 2856-03 - PSA Order Info: 3024-7 - T4F Performed By: #### L 506.0400, L501.9910, L500.4100, L100.0100, L500.4050, L501.9520 #### [facility] [address] [place], [address] Sodium [Moles/Vol] 141 mmol/L Normal 136-145 [facility] Comment on above: Order Comment: Order Date: 05/16/24 Order Info: 785-03 - CMP Order Info: - LIPID Order Info: 3 - TSH Order Info: 2856-03 - PSA Order Info: 4-7 - T4F Performed By: #### L 506.0400, L501.9910, L500.4100, L100.0100, L500.4050, L501.9520 #### [facility] [address] [place], [address] T PROT 7.6 g/dL Normal 6.4-8.2 [facility] Comment on above: Order Comment: Order Date: 05/16/24 Order Info: 785-03 - CMP Order Info: - LIPID Order Info: 3 - TSH Order Info: 2851 - PSA Order Info: 3024-7 - T4F Performed By: #### L 506.0400, L501.9910, L500.4100, L100.0100, L500.4050, L501.9520 #### [facility] [address] [place], [place], [address] Urea nitrogen [Mass/Vol] 21 mg/dL High 7-18 [facility] Comment on above: Order Comment: Order Date: 05/16/24 Order Info: 0786-1 - CMP Order Info: 79514-3 - LIPID Order Info: 3016-3 - TSH Order Info: 2857-1 - PSA Order Info: 3024-7 - T4F Performed By: #### L 506.0400, L501.9910, L500.4100, L100.0100, L500.4050, L501.9520 #### [facility] [address] [place], [place], [address] Direct serum free thyroxine (FT4) measurementOrdered By: Evans Zeng on 05-17-2024 Free T4 [Mass/Vol] 1.05 ng/dL 0.76-1.46 [facility] Eosinophil percentageOrdered By: Evans Zeng on 05-17-2024 Eosinophils/100 WBC (Bld) 1.5 % 0-5 [facility] Erythrocyte distribution wid th ratioOrdered By: Evans Zeng on 05-17-2024 Erythrocyte distribution width (RBC) [Ratio] 13.2 % 11.6-14.6 [facility] Erythrocyte distribution wid th standard deviationOrdered By: Evans Zeng on 05-17-2024 Erythrocyte distribution width (RBC) [Entitic vol] 43.2 fL 35.1-43.9 [facility] Estimated glomerular filtrat ion rate (GFR) AmericanOrdered By: Evans Zeng on 05-17-2024 Estimated GFR (MDRD) Amer 94 mL/min >60 [facility] Comment on above: GFR Calc Glomerular filtration rate ( GFR) estimationOrdered By: Evans Zeng on 05-17-2024 Estimated GFR (MDRD) Non-Af Amer 78 mL/min >60 [facility] Comment on above: Non- GFR Calc Glucose measurementOrdered B y: Evans Zeng on 05-17-2024 Glucose [Mass/Vol] 105 mg/dL 74-106 [facility] Comment on above: Fasting Glucose resu lt from 100 to 125 mg/dL suggests IMPAIRED HOMEOSTASIS per A.D.A. criteria. Hematocrit Auto (Bld) [Volum e fraction]Ordered By: Evans Zeng on 05-17-2024 Hematocrit (Bld) [Volume fraction] 45.8 % 40-54 [facility] Hemoglobin measurementOrdere d By: Evans Zeng on 05-17-2024 Hemoglobin (Bld) [Mass/Vol] 14.4 g/dL 13.0-16.5 [facility] High density lipoprotein (HD L) measurementOrdered By: Evans Zeng on 05-17-2024 Cholesterol in HDL [Mass/Vol] 45 mg/dL >40 [facility] Comment on above: The drugs N-Acetylcy steine and Metamizole may falsely depress this assay. Reference Range HDL <40 mg/dL Low HDL Cholesterol HDL >or= 60 mg/dL High HDL Cholesterol Immature granulocytes/100 WB C Auto (Bld)Ordered By: Evans Zeng on 05-17-2024 Immature granulocytes/100 WBC (Bld) 0.200 % 0.0-0.9 [facility] Comment on above: IG% - Immature Granu locytes (promyelocytes, myelocytes and metamyelocytes) > 1% indicates that a LEFT SHIFT is Present. Laboratory - Chemistry and C hemistry - challengeOrdered By: Evans Zeng on 05-17-2024 AST [Catalytic activity/Vol] 28 U/L 15-37 [facility] Lipid Profileon 05-17-2024 Cholesterol [Mass/Vol] 132 mg/dL Normal 200 [facility] Comment on above: Order Comment: Order Date: 05/16/24 Order Info: 0786-1 - CMP Order Info: 06095-2 - LIPID Order Info: 3016-3 - TSH Order Info: 2857-1 - PSA Order Info: 3024-7 - T4F Result Comment: <200 mg/dL Desirable 200-240 mg/dL Borderline >240 mg/dL High Risk Performed By: #### L 506.0400, L501.9910, L500.4100, L100.0100, L500.4050, L501.9520 #### [facility] [place], [address] Cholesterol in HDL [Mass/Vol] 45 mg/dL Normal [facility] Comment on above: Order Comment: Order Date: 05/16/24 Order Info: 785-03 - CMP Order Info: - LIPID Order Info: 3015-05 - TSH Order Info: 2856-03 - PSA Order Info: 7 - T4F Result Comment: The drugs N-Acetylcysteine and Metamizole may falsely depress this assay. Reference Range HDL <40 mg/dL Low HDL Cholesterol HDL >or= 60 mg/dL High HDL Cholesterol Performed By: #### L 506.0400, L501.9910, L500.4100, L100.0100, L500.4050, L501.9520 #### [facility] [address] [place], [address] Cholesterol in LDL [Mass/Vol] 78 mg/dL Normal 0-130 [facility] Comment on above: Order Comment: Order Date: 05/16/24 Order Info: 785-03 - CMP Order Info: - LIPID Order Info: 3015-05 - TSH Order Info: 2856-03 - PSA Order Info: 7 - T4F Performed By: #### L 506.0400, L501.9910, L500.4100, L100.0100, L500.4050, L501.9520 #### [facility] [address] [place], [address] Cholesterol in VLDL [Mass/Vol] 9 mg/dL Normal 5-40 [facility] Comment on above: Order Comment: Order Date: 05/16/24 Order Info: 785-03 - CMP Order Info: - LIPID Order Info: 3015-05 - TSH Order Info: 2856-03 - PSA Order Info: 7 - T4F Performed By: #### L 506.0400, L501.9910, L500.4100, L100.0100, L500.4050, L501.9520 #### [facility] [address] [place], [address] Triglyceride [Mass/Vol] 46 mg/dL Normal [facility] Comment on above: Order Comment: Order Date: 05/16/24 Order Info: 0786-1 - CMP Order Info: 36041-8 - LIPID Order Info: 3016-3 - TSH Order Info: 2857-1 - PSA Order Info: 3024-7 - T4F Result Comment: The drugs N-Acetylcysteine and Metamizole may falsely depress this assay. Serum Triglycerides Reference Interval Normal <150 mg/dL Borderline high 150 - 199 mg/dL High 200 - 499 mg/dL Very High > or = 500 mg/dL Performed By: #### L 506.0400, L501.9910, L500.4100, L100.0100, L500.4050, L501.9520 #### [facility] [address] [place], [place], [id number] Low density lipoprotein (LDL ) cholesterol measurementOrdered By: Evans Zeng on 05-17-2024 Cholesterol in LDL [Mass/Vol] 78 mg/dL 0-130 [facility] Lymphocytes Auto (Unsp spec) [#/Vol]Ordered By: Evans Zeng on 05-17-2024 Lymphocytes (Bld) [#/Vol] 1.04 10*3/uL 0.83-4.5 1 [facility] Lymphocytes/100 WBC Auto (Un sp spec)Ordered By: Evans Zeng on 05-17-2024 Lymphocytes/100 WBC (Bld) 23.0 % 19-41 [facility] MCV (mean corpuscular volume ) determinationOrdered By: Evans Zeng on 05-17-2024 MCV (RBC) [Entitic vol] 89.6 fL 80-94 [facility] Mean corpuscular hemoglobin (MCH) determinationOrdered By: Evans Zeng on 05-17-2024 MCH (RBC) [Entitic mass] 28.2 pg 27.0-32.0 [facility] Mean corpuscular hemoglobin concentration (MCHC) determinationOrdered By: Evans Zeng on 05-17-2024 MCHC (RBC) [Mass/Vol] 31.4 g/dL Low 32-36 [facility] Mean platelet volume determi nationOrdered By: Evans Zeng on 05-17-2024 Platelet mean volume (Bld) [Entitic vol] 11.1 fL 6.2-12.0 [facility] Monocyte percentageOrdered B y: Evans Zeng on 05-17-2024 Monocytes/100 WBC (Bld) 10.4 % High 0-10 [facility] Neutrophil percentageOrdered By: Evans Zeng on 05-17-2024 Neutrophils/100 WBC (Bld) 64.5 % 47-70 [facility] Nucleated red blood cell per centageOrdered By: Evans Zeng on 05-17-2024 Nucleated RBC/100 WBC (Bld) [Ratio] 0 % 0-5 [facility] PSA,Total - Annual Screenon 05-17-2024 PSA,TOT SCREEN 1.16 ng/mL Normal 0.00-4.00 [facility] Comment on above: Order Comment: Order Date: 05/16/24 Order Info: [id number] - CMP Order Info: [id number] - LIPID Order Info: [id number] - TSH Order Info: [id number] - PSA Order Info: [id number] - T4F Result Comment: This test was performed using the TPSA assay method for the [employer] chemistry system. Values obtained with different assay methods cannot be used interchangably. When changing PSA assays in the course of monitoring a patient, additional sequential testing should be carried out to confirm baseline values. Performed By: #### L 506.0400, L501.9910, L500.4100, L100.0100, L500.4050, L501.9520 #### [facility] [address] [place], [place], [address] Platelet countOrdered By: Debra Zeng on 05-17-2024 Platelets (Bld) [#/Vol] 170 10*3/uL 150-450 [facility] Potassium measurementOrdered By: Evans Zeng on 05-17-2024 Potassium [Moles/Vol] 4.3 mmol/L 3.5-5.1 [facility] RBC Auto (Bld) [#/Vol]Ordere d By: Evans Zeng on 05-17-2024 RBC (Bld) [#/Vol] 5.11 10*6/uL 4.6-6.2 [facility] Screening prostate specific antigen (PSA) measurementOrdered By: Evans Zeng on 05-17-2024 Prostate Specific Antigen Screen 1.16 ng/mL 0.00-4.00 [facility] Comment on above: This test was perfor med using the TPSA assay method for the[employer] chemistry system. Values obtained with differentassay methods cannot be used interchangably.When changing PSA assays in the course of monitoring apatient, additional sequential testing should be carriedout to confirm baseline values. Serum anion gap measurementO rdered By: Evans Zeng on 05-17-2024 Anion gap [Moles/Vol] 3 mmol/L Low 5-15 [facility] Serum globulin measurementOr dered By: Evans Zeng on 05-17-2024 Globulin (S) [Mass/Vol] 3.8 g/dL 2.2-4.2 [facility] Serum or plasma alanine hare otransferase (ALT) measurementOrdered By: Evans Zeng on 05-17-2024 ALT [Catalytic activity/Vol] 37 U/L 16-61 [facility] Serum or plasma albumin nena urement (mass/volume)Ordered By: Evans Zeng on 05-17-2024 Albumin [Mass/Vol] 3.8 g/dL 3.2-5.0 [facility] Serum or plasma alkaline kassandra sphatase measurementOrdered By: Evans Zeng on 05-17-2024 ALP [Catalytic activity/Vol] 80 U/L 45-117 [facility] Serum or plasma calcium nena urement (mass/volume)Ordered By: Evans Zeng on 05-17-2024 Calcium [Mass/Vol] 8.7 mg/dL 8.5-10.1 [facility] Serum or plasma cholesterol measurement (mass/volume)Ordered By: Evans Zeng on 05-17-2024 Cholesterol [Mass/Vol] 132 mg/dL <200 [facility] Comment on above: <200 mg/dL Desirable 200-240 mg/dL Borderline >240 mg/dL High Risk Serum or plasma creatinine m easurement (mass/volume)Ordered By: Evans Zeng on 05-17-2024 Creatinine [Mass/Vol] 1.01 mg/dL 0.70-1.30 [facility] Comment on above: The validity of the calculated GFR & GFRAA in patients over 70 years has not been determined. Clinical correlation is essential. Serum or plasma urea nitroge n measurement (mass/volume)Ordered By: Evans Zeng on 05-17-2024 Urea nitrogen [Mass/Vol] 21 mg/dL High 7-18 [facility] Sodium levelOrdered By: Evans Zeng on 05-17-2024 Sodium [Moles/Vol] 141 mmol/L 136-145 [facility] T4 Free Directon 05-17-2024 T4 FREE DIRECT 1.05 ng/dL Normal 0.76-1.46 [facility] Comment on above: Order Comment: Order Date: 05/16/24 Order Info: [id number] - CMP Order Info: [id number] - LIPID Order Info: 3 - TSH Order Info: [id number] - PSA Order Info: 7 - T4F Performed By: #### L 506.0400, L501.9910, L500.4100, L100.0100, L500.4050, L501.9520 #### [facility] [address] [place], [place], [address] TSH QnOrdered By: Evans hobson on 05-17-2024 Thyroid Stimulating Hormone (TSH) 6.760 uIU/mL High 0.358-3.740 [facility] Thyroid Stim Hormone (TSH)on 05-17-2024 TSH 6.760 uIU/mL High 0.358-3.740 [facility] Comment on above: Order Comment: Order Date: 05/16/24 Order Info: [id number] - CMP Order Info: [id number] - LIPID Order Info: 3 - TSH Order Info: [id number] - PSA Order Info: 7 - T4F Performed By: #### L 506.0400, L501.9910, L500.4100, L100.0100, L500.4050, L501.9520 #### [facility] [address] [place], [address] Total proteinOrdered By: Noel Zeng on 05-17-2024 Protein [Mass/Vol] 7.6 g/dL 6.4-8.2 [facility] Triglycerides measurementOrd ered By: Evans Zeng on 05-17-2024 Triglyceride [Mass/Vol] 46 mg/dL <199 [facility] Comment on above: The drugs N-Acetylcy steine and Metamizole may falsely depress this assay.Serum Triglycerides Reference Interval Normal <150 mg/dL Borderline high 150 - 199 mg/dL High 200 - 499 mg/dL Very High > or = 500 mg/dL Very low density lipoprotein (VLDL) cholesterol measurementOrdered By: Evans Zeng on 05-17-2024 VLDL Cholesterol 9 mg/dL 5-40 [facility] White blood cell (WBC) count Ordered By: Evans Zeng on 05-17-2024 WBC (Bld) [#/Vol] 4.5 10*3/uL 4.4-11.0 [facility] Absolute lymphocyte countOrd ered By: Evans Zeng on 04-14-2023 Lymphocytes Auto (Unsp spec) [#/Vol] 1.13 10*3/uL 0.83-4.51 [facility] Automated lymphocyte count a s percentage of total leukocytesOrdered By: Evans Zeng on 04-14-2023 Lymphocytes/100 WBC Auto (Unsp spec) 22.9 % 19-41 [facility] Basophil percentageOrdered B y: Evans Zeng on 04-14-2023 Basophils/100 WBC (Bld) 0.2 % 0-1 [facility] Bilirubin [Mass/Vol] 0.80 mg/dL 0.20-1.00 [facility] Comment on above: For patients on eltr ombopag therapy, use of Dimension [place] TBIL is not recommended. Chloride [Moles/Vol] 107 mmol/L 98-107 [facility] Cholesterol [Mass/Vol] 136 mg/dL <200 [facility] Comment on above: <200 mg/dL Desirable 200-240 mg/dL Borderline >240 mg/dL High Risk Eosinophils/100 WBC (Bld) 1.6 % 0-5 [facility] Glucose [Mass/Vol] 100 mg/dL 74-106 [facility] Comment on above: Fasting Glucose resu lt from 100 to 125 mg/dL suggests IMPAIRED HOMEOSTASIS per A.D.A. criteria. Hemoglobin (Bld) [Mass/Vol] 14.8 g/dL 13.0-16.5 [facility] Monocytes/100 WBC (Bld) 10.5 % 0-10 [facility] Neutrophils (Bld) [#/Vol] 3.2 10*3/uL 2.0-7.7 [facility] Neutrophils/100 WBC (Bld) 64.6 % 47-70 [facility] Potassium [Moles/Vol] 4.3 mmol/L 3.5-5.1 [facility] Protein [Mass/Vol] 7.4 g/dL 6.4-8.2 [facility] Sodium [Moles/Vol] 138 mmol/L 136-145 [facility] Triglyceride [Mass/Vol] 78 mg/dL <199 [facility] Comment on above: The drugs N-Acetylcy steine and Metamizole may falsely depress this assay.Serum Triglycerides Reference Interval Normal <150 mg/dL Borderline high 150 - 199 mg/dL High 200 - 499 mg/dL Very High > or = 500 mg/dL WBC (Bld) [#/Vol] 4.9 10*3/uL 4.4-11.0 [facility] Determination of erythrocyte mean corpuscular volume (MCV)Ordered By: Evans Zeng on 04-14-2023 MCV (RBC) [Entitic vol] 90.1 fL 80-94 [facility] Erythrocyte distribution wid th ratioOrdered By: Evans Zeng on 04-14-2023 Erythrocyte distribution width (RBC) [Ratio] 13.2 % 11.6-14.6 [facility] Erythrocyte distribution wid th standard deviationOrdered By: Evans Zeng on 04-14-2023 Erythrocyte distribution width (RBC) [Entitic vol] 43.7 fL 35.1-43.9 [facility] Hematocrit Auto (Bld) [Volum e fraction]Ordered By: Evans Zeng on 04-14-2023 Hematocrit (Bld) [Volume fraction] 44.8 % 40-54 [facility] High density lipoprotein (HD L) measurementOrdered By: Evans Zeng on 04-14-2023 Cholesterol in HDL (Body fld) [Mass/Vol] 41 mg/dL >40 [facility] Comment on above: The drugs N-Acetylcy steine and Metamizole may falsely depress this assay. Reference Range HDL <40 mg/dL Low HDL Cholesterol HDL >or= 60 mg/dL High HDL Cholesterol Immature granulocytes/100 WB C Auto (Bld)Ordered By: Evans Zeng on 04-14-2023 Immature granulocytes/100 WBC (Bld) 0.200 % 0.0-0.9 [facility] Comment on above: IG% - Immature Granu locytes (promyelocytes, myelocytes and metamyelocytes) > 1% indicates that a LEFT SHIFT is Present. Laboratory - Chemistry and C hemistry - challengeOrdered By: Evans Zeng on 04-14-2023 Albumin/Globulin [Mass ratio] 1.0 {ratio} 0.9-2.4 [facility] ALP [Catalytic activity/Vol] 75 U/L 45-117 [facility] ALT [Catalytic activity/Vol] 39 U/L 16-61 [facility] CO2 [Moles/Vol] 28.0 mmol/L 21.0-32.0 [facility] Globulin (S) [Mass/Vol] 3.7 g/dL 2.2-4.2 [facility] Urea nitrogen/Creatinine [Mass ratio] 15.7 mg/mg 10-20 [facility] - Hematology and Cell countsOrdered By: Evans Zeng on 04-14-2023 MCH (RBC) [Entitic mass] 29.8 pg 27.0-32.0 [facility] MCHC (RBC) [Mass/Vol] 33.0 g/dL 32-36 [facility] Nucleated RBC/100 WBC (Bld) [Ratio] 0 % 0-5 [facility] Platelets (Bld) [#/Vol] 165 10*3/uL 150-450 [facility] Low density lipoprotein (LDL ) cholesterol measurementOrdered By: Evans Zeng on 04-14-2023 Cholesterol in LDL (Body fld) [Moles/Vol] 79 mg/dL 0-130 [facility] No Panel InformationOrdered By: Evans Zeng on 04-14-2023 Estimated GFR (MDRD) Amer 93 mL/min >60 [facility] Comment on above: GFR Calc Estimated GFR (MDRD) Non-Af Amer 77 mL/min >60 [facility] Comment on above: Non- GFR Calc Platelet mean volume [place] ker (Bld) [Entitic vol]Ordered By: Evans Zeng on 04-14-2023 Platelet mean volume (Bld) [Entitic vol] 11.6 fL 6.2-12.0 [facility] RBC Auto (Bld) [#/Vol]Ordere d By: Evans Zeng on 04-14-2023 RBC (Bld) [#/Vol] 4.97 10*6/uL 4.6-6.2 [facility] Screening prostate specific antigen (PSA) measurementOrdered By: Evans Zeng on 04-14-2023 Prostate specific Ag IA [Mass/Vol] 0.87 ng/mL 0.00-4.00 [facility] Comment on above: This test was perfor med using the TPSA assay method for [employer] chemistry system. Values obtained with differentassay methods cannot be used interchangably.When changing PSA assays in the course of monitoring apatient, additional sequential testing should be carriedout to confirm baseline values. Serum or plasma calcium nena urement (mass/volume)Ordered By: Evans Zeng on 04-14-2023 Calcium [Mass/Vol] 9.2 mg/dL 8.5-10.1 [facility] Serum or plasma creatinine m easurement (mass/volume)Ordered By: Evans Zeng on 04-14-2023 Creatinine [Mass/Vol] 1.02 mg/dL 0.70-1.30 [facility] Comment on above: The validity of the calculated GFR & GFRAA in patients over 70 years has not been determined. Clinical correlation is essential. Serum or plasma thyroid stim ulating hormone (TSH) measurement (units/volume)Ordered By: Evans Zeng on 04-14-2023 TSH Qn 5.95 uIU/mL 0.358-3.74 [facility] Serum or plasma urea nitroge n measurement (mass/volume)Ordered By: Evans Zeng on 04-14-2023 Urea nitrogen [Mass/Vol] 16 mg/dL 7-18 [facility] Thin prep Papanicolaou smear with manual screeningOrdered By: Evans Zeng on 04-14-2023 Thin prep Papanicolaou smear with manual screening 3.7 g/dL 3.2-5.0 [facility] Thin prep Papanicolaou smear with manual screening 24 U/L 15-37 [facility] Thin prep Papanicolaou smear with manual screening 3 5-15 [facility] Thin prep Papanicolaou smear with manual screening 1.02 ng/dL 0.76-1.46 [facility] Very low density lipoprotein (VLDL) cholesterol measurementOrdered By: Evans Zeng on 04-14-2023 Cholesterol in VLDL Calc [Moles/Vol] 16 mg/dL 5-40 [facility] Absolute lymphocyte counton 03-10-2022 Lymphocytes Auto (Unsp spec) [#/Vol] 1.18 10*3/uL 0.83-4.51 [facility] Work Phone: Basophil percentageon 2021 Basophils/100 WBC (Bld) 0.4 % 0-1 [facility] Work Phone: Bilirubin [Mass/Vol] 0.50 mg/dL 0.20-1.00 [facility] Work Phone: Comment on above: For patients on eltr ombopag therapy, use of Dimension [place] TBIL is not recommended. Chloride [Moles/Vol] 107 mmol/L 98-107 [facility] Work Phone: Cholesterol [Mass/Vol] 139 mg/dL <200 [facility] Work Phone: Comment on above: <200 mg/dL Desirable 200-240 mg/dL Borderline >240 mg/dL High Risk Eosinophils/100 WBC (Bld) 2.4 % 0-5 [facility] Work Phone: Glucose [Mass/Vol] 93 mg/dL 74-106 [facility] Work Phone: Neutrophils (Bld) [#/Vol] 3.0 10*3/uL 2.0-7.7 [facility] Work Phone: Neutrophils/100 WBC (Bld) 61.6 % 47-70 [facility] Work Phone: Potassium [Moles/Vol] 4.4 mmol/L 3.5-5.1 [facility] Work Phone: [phone] Protein [Mass/Vol] 7.0 g/dL 6.4-8.2 [facility] Work Phone: Sodium [Moles/Vol] 141 mmol/L 136-145 [facility] Work Phone: Triglyceride [Mass/Vol] 50 mg/dL <199 [facility] Work Phone: Comment on above: The drugs N-Acetylcy steine and Metamizole may falsely depress this assay.Serum Triglycerides Reference Interval Normal <150 mg/dL Borderline high 150 - 199 mg/dL High 200 - 499 mg/dL Very High > or = 500 mg/dL WBC (Bld) [#/Vol] 4.9 10*3/uL 4.4-11.0 [facility] Work Phone: Blood erythrocytes count (nu mber/volume)on 03-10-2022 RBC (Bld) [#/Vol] 4.98 10*6/uL 4.6-6.2 [facility] Work Phone: Blood hemoglobin measurement (mass/volume)on 03-10-2022 Hemoglobin (Bld) [Mass/Vol] 14.3 g/dL 13.0-16.5 [facility] Work Phone: Blood lymphocytes/100 leukoc yteson 03-10-2022 Lymphocytes/100 WBC (Bld) 23.9 % 19-41 [facility] Work Phone: Blood monocytes/100 leukocyt eson 03-10-2022 Monocytes/100 WBC (Bld) 11.3 % 0-10 [facility] Work Phone: Blood platelet mean volumeon 03-10-2022 Platelet mean volume (Bld) [Entitic vol] 11.1 fL 6.2-12.0 [facility] Work Phone: Determination of erythrocyte mean corpuscular volume (MCV)on 03-10-2022 MCV (RBC) [Entitic vol] 90.6 fL 80-94 [facility] Work Phone: Hematocrit Auto (Bld) [Volum e fraction]on 03-10-2022 Hematocrit (Bld) [Volume fraction] 45.1 % 40-54 [facility] Work Phone: Laboratory - Chemistry and C hemistry - challengeon 03-10-2022 ALP [Catalytic activity/Vol] 75 U/L 45-117 [facility] Work Phone: ALT [Catalytic activity/Vol] 47 U/L 16-61 [facility] Work Phone: CO2 [Moles/Vol] 29.0 mmol/L 21.0-32.0 [facility] Work Phone: Free T4 [Mass/Vol] 1.10 ng/dL 0.76-1.46 [facility] Work Phone: Globulin (S) [Mass/Vol] 3.2 g/dL 2.2-4.2 [facility] Work Phone: Urea nitrogen/Creatinine [Mass ratio] 20.1 mg/mg 10-20 [facility] Work Phone: Laboratory - Hematology and Cell countson 03-10-2022 Erythrocyte distribution width (RBC) [Entitic vol] 44.6 fL 35.1-43.9 [facility] Work Phone: Erythrocyte distribution width (RBC) [Ratio] 13.4 % 11.6-14.6 [facility] Work Phone: Immature granulocytes/100 WBC (Bld) 0.400 % 0.0-0.9 [facility] Work Phone: Comment on above: IG% - Immature Granu locytes (promyelocytes, myelocytes and metamyelocytes) > 1% indicates that a LEFT SHIFT is Present. MCH (RBC) [Entitic mass] 28.7 pg 27.0-32.0 [facility] Work Phone: Nucleated RBC/100 WBC (Bld) [Ratio] 0 % 0-5 [facility] Work Phone: MCHC Auto (RBC) [Mass/Vol]on 03-10-2022 MCHC (RBC) [Mass/Vol] 31.7 g/dL 32-36 [facility] Work Phone: No Panel Informationon 03-10 Estimated GFR (MDRD) Amer 96 mL/min >60 [facility] Work Phone: Comment on above: GFR Calc Estimated GFR (MDRD) Non-Af Amer 79 mL/min >60 [facility] Work Phone: Comment on above: Non- GFR Calc Prostate Specific Antigen Screen 0.77 ng/mL 0.00-4.00 [facility] Work Phone: Comment on above: This test was perfor med using the TPSA assay method for [employer] system. Values obtained with differentassay methods cannot be used interchangably.When changing PSA assays in the course of monitoring apatient, additional sequential testing should be carriedout to confirm baseline values. Thyroid Stimulating Hormone (TSH) 5.40 uIU/mL 0.358-3.74 [facility] Work Phone: Platelets bldon 03-10-2022 Platelets (Bld) [#/Vol] 163 10*3/uL 150-450 [facility] Work Phone: Serum or plasma albumin nena urement (mass/volume)on 03-10-2022 Albumin [Mass/Vol] 3.8 g/dL 3.2-5.0 [facility] Work Phone: Serum or plasma albumin/glob ulin mass ratioon 03-10-2022 Albumin/Globulin [Mass ratio] 1.2 {ratio} 0.9-2.4 [facility] Work Phone: Serum or plasma calcium nena urement (mass/volume)on 03-10-2022 Calcium [Mass/Vol] 8.9 mg/dL 8.5-10.1 [facility] Work Phone: Serum or plasma cholesterol in HDL measurement (mass/volume)on 03-10-2022 Cholesterol in HDL [Mass/Vol] 45 mg/dL >40 [facility] Work Phone: Comment on above: The drugs N-Acetylcy steine and Metamizole may falsely depress this assay. Reference Range HDL <40 mg/dL Low HDL Cholesterol HDL >or= 60 mg/dL High HDL Cholesterol Serum or plasma cholesterol in VLDL measurement (mass/volume)on 03-10-2022 Cholesterol in VLDL [Mass/Vol] 10 mg/dL 5-40 [facility] Work Phone: Serum or plasma creatinine m easurement (mass/volume)on 03-10-2022 Creatinine [Mass/Vol] 0.99 mg/dL 0.70-1.30 [facility] Work Phone: Comment on above: The validity of the calculated GFR & GFRAA in patients over 70 years has not been determined. Clinical correlation is essential. Serum or plasma low density lipoprotein (LDL) cholesterol measurement (mass/volume)on 03-10-2022 Cholesterol in LDL [Mass/Vol] 84 mg/dL 0-130 [facility] Work Phone: Serum or plasma urea nitroge n measurement (mass/volume)on 03-10-2022 Urea nitrogen [Mass/Vol] 20 mg/dL 7-18 [facility] Work Phone: Thin prep Papanicolaou smear with manual screeningon 03-10-2022 Thin prep Papanicolaou smear with manual screening 27 U/L 15-37 [facility] Work Phone: Thin prep Papanicolaou smear with manual screening 5 5-15 [facility] Work Phone: Encounters Encounter Date Encounter Type Care Provider Facility Start: 06-05-2024 End: 06-05-[address] Evans Zeng MD Work Phone: [facility] Work Phone: Start: 06-05-2024 End: 06-05-[address] [facility] Start: 06-05-2024 End: 06-05-2024 ambulatory Evans Zeng Facility:[facility] Start: 05-17-2024 End: 05-17-[address] [facility] Start: 05-17-2024 End: 05-17-2024 ambulatory Evans Zeng Facility:[facility] Start: 04-14-2023 End: 04-14-2023 ambulatory [facility] Work Phone: Start: 04-14-2023 End: 04-14-2023 Patient encounter procedure [facility] Work Phone: Start: 03-10-2022 End: 03-10-2022 ambulatory [facility] Work Phone: Start: 03-10-2022 End: 03-10-[address] [facility] Plan of Treatment Date Care Activity Detail Author Thyroglobulin antibody measurement [facility] Work Phone: Thyroperoxidase Ab [ Units/volume] in Serum or Plasma [facility] Work Phone: Payers Date Payer Category Payer Self-pay [id number] 2024 Unknown [id number] Unknown [id number] Unknown [id number] Social History Date Type Detail Facility Start: 04-30-2021 Tobacco smoking stat [facility] Unknown if ever smoked [facility] Start: 1955 Sex Assigned At Male [facility]: [facility] Start: 06-15-2024 Sex Male (finding) [facility] Medical Equipment Procedure Code Equipment Code Equipment Origin al Text Equipment Identifier Dates MESH,3DMAX RIGHT XL [id number] FDA Start: 05-26-2021 MESH,3DMAX XL LE FT [id number] FDA Start: 05-26-2021 TACKER,SECURE STRAP FDA Start : 05-26-2021 Ligation clip, synthetic polymer, non-bioabsorbable [id number] FDA Start: 05-26-2021 Ligation clip, synthetic polymer, non-bioabsorbable [id number] FDA Start: 05-26-2021 Ligation clip, synthetic polymer, non-bioabsorbable [id number] FDA Start: 05-26-2021 MESH,3DMAX RIGHT XL [id number] FDA Start: 05-26-2021 MESH,3DMAX XL LE FT [id number] FDA Start: 05-26-2021 TACKER,SECURE STRAP FDA Start : 05-26-2021 MESH,3DMAX RIGHT XL [id number] FDA Start: 05-26-2021 MESH,3DMAX XL LE FT [id number] FDA Start: 05-26-2021 TACKER,SECURE STRAP FDA Start : 05-26-2021 Evaluation note Note Date & Type Note Facility Evaluation note No assessment information availa ble [facility] Work Phone: Reason for referral (narrative) Note Date & Type Note Facility Reason for referral (narrative) No reason for referral information available [facility] Work Phone: Family History Relationship Condition Age at Onset Recorded Date/T alicia mother Hypertension Unknown Cerebrovascular accident (CVA) Unknown Advance Directives Advance Directive Response Recorded Date/ Time Living Will No April 24 11:30am Power of Chief Operations Officer No April 24, 2021 11:30am Chief Complaint and Reason for Visit Chief Complaint EORDER Chief Complaint Admit Date E-ORDER May 17, 2024 7:03am Summary Purpose Additional Source Comments Goals (unrecognized section and content) Goals may be documented in a n alternate sectionGoals may be documented in an alternate sectionGoals may be documented in an alternate section Care Teams (unrecognized sec tion and content) Team Status: Active Member Role Status Dates Dr. Evans Zeng MD Family Provider Active Dr. Evans Zeng MD Primary Care Provider Active Team Status: Inactive Member Role Status Dates Dr. Evans Zeng MD Primary Care Pr ovider, Attending Provider, Referring Provider Active Team Status: Inactive Member Role Status Dates Dr. Evans Zeng MD Primary Care Provider Active Start: May 17, 2024 End: May 17, 2024 Dr. Evans Zeng MD Attending Provider Active Start: May 17, 2024 End: May 17, 2024 Dr. Evans Zeng MD Referring Provider Active Start: May 17, 2024 End: May 17, 2024 Team Status: Inactive Member Role Status Dates Dr. Evans Zeng MD Primary Care Provider Active Start: June 05, 2024 End: June 05, 2024 Dr. Evans Zeng MD Attending Provider Active Start: June 05, 2024 End: June 05, 2024 Dr. Evans Zeng MD Referring Provider Active Start: June 05, 2024 End: June 05, 2024 (unrecognized sect ion and content) No Status Records Found INFORMATION SOURCE (unrecogn ized section and content) DATE CREATED AUTHOR 06/17/2024 [facility] FOR RECORDS PERTAINING TO PATIENTS WHO ARE OR HAVE BEEN ENROLLED IN A CHEMICAL DEPENDENCY/SUBSTANCEABUSE PROGRAM, SOME INFORMATION MAY BE OMITTED. This clinical summary was aggregated from multiple sources. Caution should be exercised in using it in the provision of clinical care. This summary normalizes information from multiple sources, and as a consequence, information in this document may materially change the coding, format and clinical context of patient data. In addition, data may be omitted in some cases. CLINICAL DECISIONS SHOULD BE BASED ON THE PRIMARY CLINICAL RECORDS. [facility] [employer] [facility]. provides no warranty or guarantee of the accuracy or completeness of information in this document.
[2024-12-04 11:06] LABS: AST(SGOT) 26 U/L (<=37); Alanine Aminotransfer ALT/SGPT 24 U/L (<=46); Albumin, Serum 4.3 g/dL (3.4-4.8); Alkaline Phosphatase 108 U/L (40-129); Anion Gap 10 (5-15); BUN 25 mg/dL (4-19); BUN/Creat Ratio 25.0 RATIO (10-20); Calcium,Total 9.1 mg/dL (7.6-11.0); Carbon Dioxide 25.8 mmol/L (21.0-32.0); Chloride 105 mmol/L (98-108); Globulin 3.2 g/dL (2.2-4.2); Glucose 99 mg/dL (70-99); Potassium 4.6 mmol/L (3.3-5.1)
== END | disposition home or self-care (01) ==
LOC: MTLAB 07:06
PROVIDERS: PCP Family Medicine; Referring Provider Family Medicine; Visit Provider Family Medicine
DX: E06.3 Autoimmune thyroiditis (principal); R73.09 Other abnormal glucose
CPT/HCPCS: 36415; 80053; 83036; 84439; 84443